=== PATIENT | female | born 1970 | race Caucasian/White ===

== ENCOUNTER 2018-07-27 16:13 | Observation (INO) | payer BC, OTHER ==
[2018-07-27] MEDS ORDERED: hydrALAZINE HCL 20 MG/ML 1 ML VIAL IVP STA ×2 (17:02→18:40)
--- NOTE | 2018-07-27 17:05 | ED ---
General Adult HPI - General Chief complaint: Recheck/Abnormal Lab/Rx Stated complaint: High BP/lightheaded Time Seen by Provider: 07/27/18 16:15 Source: patient, RN notes reviewed Mode of arrival: ambulatory Limitations: no limitations - History of Present Illness Initial comments: This is a 47-year-old female presents emergency department claiming that her blood pressures been elevated over the last 6 months but today at the eye doctor 's office her blood pressure was over 200. Patient states he felt a little lightheaded this afternoon so she decided to come in to the emergency department. Patient denies any chest pain patient denies any headache patient denies any blurred vision. Patient denies any numbness or weakness. Patient denies any palpitations. Patient denies abdominal pain patient denies any nausea vomiting diarrhea. Patient denies any recent fever chills or cough. Patient states she hasn't had her blood pressure evaluated by a physician because she has not had insurance for quite a few years. Patient states she takes her blood pressure at home and has noticed his been elevating over this last 6 months. - Related Data Home Medications Medication Instructions Recorded Confirmed Aspirin EC [Ecotrin] 325 mg PO ONCE PRN 07/27/18 07/27/18 Norgestimate-Ethinyl Estradiol 1 tab PO HS 07/27/18 07/27/18 [Tri-Sprintec Tablet] Allergies Allergy/AdvReac Type Severity Reaction Status Date / Time No Known Allergies Allergy Verified 07/27/18 16:39 Review of Systems ROS Statement: Those systems with pertinent positive or pertinent negative responses have been documented in the HPI. ROS Other: All systems not noted in ROS Statement are negative. Past Medical History Additional Past Medical History / Comment(s): neurofibromatosis History of Any Multi-Drug Resistant Organisms: None Reported Past Surgical History: Section Additional Past Surgical History / Comment(s): brain surgery Past Psychological History: No Psychological Hx Reported Smoking Status: Never smoker Past Alcohol Use History: None Reported Past Drug Use History: None Reported General Exam - General Exam Comments Initial Comments: GENERAL: Patient is well-developed and well-nourished. Patient is nontoxic and well- hydrated and is in no acute distress. ENT: Neck is soft and supple. No significant lymphadenopathy is noted. Oropharynx is clear. Moist mucous membranes. Neck has full range of motion without eliciting any pain. There is no thyroid enlargement and no masses were felt. EYES: The sclera were anicteric and conjunctiva were pink and moist. Extraocular movements were intact and pupils were equal round and reactive to light. Eyelids were unremarkable. PULMONARY: Unlabored respirations. Good breath sounds bilaterally. No audible rales rhonchi or wheezing was noted. CARDIOVASCULAR: There is a regular rate and rhythm without any murmurs gallops or rubs. ABDOMEN: Soft and nontender with normal bowel sounds. No palpable organomegaly was noted. There is no palpable pulsatile mass. SKIN: Skin is clear with no lesions or rashes and otherwise unremarkable. NEUROLOGIC: Patient is alert and oriented x3. Cranial nerves II through XII are grossly intact. Motor and sensory are also intact. Normal speech, volume and content. Symmetrical smile. MUSCULOSKELETAL: Normal extremities with adequate strength and full range of motion. No lower extremity swelling or edema. No calf tenderness. LYMPHATICS: No significant lymphadenopathy is noted PSYCHIATRIC: Normal psychiatric evaluation. Limitations: no limitations Course Vital Signs 07/27/18 07/27/18 07/27/18 16:16 17:30 18:39 Temperature 98.1 F Pulse Rate 88 98 97 Respiratory 20 16 16 Rate Blood Pressure 208/98 161/87 168/85 O2 Sat by Pulse 100 100 100 Oximetry 07/27/18 19:12 Temperature Pulse Rate 90 Respiratory 16 Rate Blood Pressure 153/85 O2 Sat by Pulse 98 Oximetry Medical Decision Making - Medical Decision Making EKG shows sinus rhythm with occasional PVC at 75 bpm MN interval 1:30 QRS is 88 QT interval 374 QTC is 417. Patient's EKG shows no ST segment elevation or depression or T wave abnormalities are noted Chest x-ray shows no acute abnormalities. Patient continues to have intermittent chest heaviness and it was at this point time due to the patient wanted to stay in hospital and she was in agreement. I consult the cardiology I spoke with because he agreed to admit the patient admitted the patient I wrote admitting orders. I continued the Nitropaste and aspirin on the floor. - Lab Data Result diagrams: 07/27/18 17:10 07/27/18 17:10 Lab Results 07/27/18 07/27/18 07/27/18 Range/Units 17:10 17:10 17:10 WBC 9.5 (3.8-10.6) k/uL RBC 5.58 H (3.80-5.40) m/uL Hgb 15.5 (11.4-16.0) gm/dL Hct 49.3 H (34.0-46.0) % MCV 88.2 (80.0-100.0) fL MCH 27.8 (25.0-35.0) pg MCHC 31.6 (31.0-37.0) g/dL RDW 13.6 (11.5-15.5) % Plt Count 236 (150-450) k/uL Neutrophils % 74 % Lymphocytes % 17 % Monocytes % 6 % Eosinophils % 1 % Basophils % 1 % Neutrophils # 7.0 (1.3-7.7) k/uL Lymphocytes # 1.6 (1.0-4.8) k/uL Monocytes # 0.6 (0-1.0) k/uL Eosinophils # 0.1 (0-0.7) k/uL Basophils # 0.1 (0-0.2) k/uL PT (9.0-12.0) sec INR (<1.2) APTT (22.0-30.0) sec Sodium 141 (137-145) mmol/L Potassium 3.8 (3.5-5.1) mmol/L Chloride 109 H (98-107) mmol/L Carbon Dioxide 23 (22-30) mmol/L Anion Gap 9 mmol/L BUN 13 (7-17) mg/dL Creatinine 0.71 (0.52-1.04) mg/dL Est GFR (CKD-EPI)AfAm >90 (>60 ml/min/1.73 sqM) Est GFR (CKD-EPI)NonAf >90 (>60 ml/min/1.73 sqM) Glucose 96 (74-99) mg/dL Calcium 9.4 (8.4-10.2) mg/dL Magnesium 2.0 (1.6-2.3) mg/dL Total Bilirubin 0.3 (0.2-1.3) mg/dL AST 16 (14-36) U/L ALT 13 (9-52) U/L Alkaline Phosphatase 51 (38-126) U/L Total Creatine Kinase 41 (30-135) U/L CK-MB (CK-2) 0.7 (0.0-2.4) ng/mL CK-MB (CK-2) Rel Index 1.7 Troponin I <0.012 (0.000-0.034) ng/mL Total Protein 7.0 (6.3-8.2) g/dL Albumin 3.9 (3.5-5.0) g/dL 07/27/18 Range/Units 17:10 WBC (3.8-10.6) k/uL RBC (3.80-5.40) m/uL Hgb (11.4-16.0) gm/dL Hct (34.0-46.0) % MCV (80.0-100.0) fL MCH (25.0-35.0) pg MCHC (31.0-37.0) g/dL RDW (11.5-15.5) % Plt Count (150-450) k/uL Neutrophils % % Lymphocytes % % Monocytes % % Eosinophils % % Basophils % % Neutrophils # (1.3-7.7) k/uL Lymphocytes # (1.0-4.8) k/uL Monocytes # (0-1.0) k/uL Eosinophils # (0-0.7) k/uL Basophils # (0-0.2) k/uL PT 9.7 (9.0-12.0) sec INR 1.0 (<1.2) APTT 22.3 (22.0-30.0) sec Sodium (137-145) mmol/L Potassium (3.5-5.1) mmol/L Chloride (98-107) mmol/L Carbon Dioxide (22-30) mmol/L Anion Gap mmol/L BUN (7-17) mg/dL Creatinine (0.52-1.04) mg/dL Est GFR (CKD-EPI)AfAm (>60 ml/min/1.73 sqM) Est GFR (CKD-EPI)NonAf (>60 ml/min/1.73 sqM) Glucose (74-99) mg/dL Calcium (8.4-10.2) mg/dL Magnesium (1.6-2.3) mg/dL Total Bilirubin (0.2-1.3) mg/dL AST (14-36) U/L ALT (9-52) U/L Alkaline Phosphatase (38-126) U/L Total Creatine Kinase (30-135) U/L CK-MB (CK-2) (0.0-2.4) ng/mL CK-MB (CK-2) Rel Index Troponin I (0.000-0.034) ng/mL Total Protein (6.3-8.2) g/dL Albumin (3.5-5.0) g/dL Disposition Clinical Impression: Chest pain Disposition: ADMITTED IP TO THIS HOSP Referrals: None,Stated [Primary Care Provider] - 1-2 days Time of Disposition: 19:33
[2018-07-27 17:36] LABS: Basophils # (A) 0.1 k/uL (0-0.2); Basophils % (A) 1 %; Eosinophils # (A) 0.1 k/uL (0-0.7); Eosinophils % (A) 1 %; HCT 49.3 % (34.0-46.0); HGB 15.5 gm/dL (11.4-16.0); Lymphocytes # (A) 1.6 k/uL (1.0-4.8); Lymphocytes % (A) 17 %; MCH 27.8 pg (25.0-35.0); MCHC 31.6 g/dL (31.0-37.0); MCV 88.2 fL (80.0-100.0); Mean Platelet Volume 7.1; Monocytes # (A) 0.6 k/uL (0-1.0); Monocytes % (A) 6 %; Neutrophils % (A) 74 %; Platelet Count 236 k/uL (150-450); RBC 5.58 m/uL (3.80-5.40); RDW 13.6 % (11.5-15.5); WBC 9.5 k/uL (3.8-10.6)
[2018-07-27 17:45] LABS: Partial Thromboplastin Time 22.3 sec (22.0-30.0); Prothrombin Time 9.7 sec (9.0-12.0)
[2018-07-27 17:55] LABS: ALT 13 U/L (9-52); AST 16 U/L (14-36); Albumin 3.9 g/dL (3.5-5.0); Alkaline Phosphatase 51 U/L (38-126); Anion Gap 9 mmol/L; Blood Urea Nitrogen 13 mg/dL (7-17); Calcium 9.4 mg/dL (8.4-10.2); Carbon Dioxide 23 mmol/L (22-30); Chloride 109 mmol/L (98-107); Glucose 96 mg/dL (74-99); Potassium 3.8 mmol/L (3.5-5.1); Sodium 141 mmol/L (137-145); Total Bilirubin 0.3 mg/dL (0.2-1.3)
[2018-07-27 18:01] LABS: Creatine Kinase 41 U/L (30-135)
[2018-07-27 18:13] LABS: Creatine Kinase MB 0.7 ng/mL (0.0-2.4); Troponin I <0.012 ng/mL (0.000-0.034)
--- NOTE | 2018-07-27 18:27 | XR ---
EXAMINATION TYPE: XR chest 2V DATE OF EXAM: 07/27/2018 COMPARISON: NONE HISTORY: High blood pressure TECHNIQUE: Frontal and lateral views of the chest are obtained. FINDINGS: Heart and mediastinum are normal. Lungs are clear. Diaphragm is normal. Bony thorax is int act. IMPRESSION: Normal chest
[2018-07-27] MEDS ORDERED: LISINOPRIL 5 MG TAB PO STA (18:37)
[2018-07-27] MEDS ORDERED: ASPIRIN 81 MG PO STA (19:10)
[2018-07-27] MEDS ORDERED: NITROGLYCERIN OINT 1 INCH/GM PACKET TOPICAL STA (19:27)
[2018-07-27] MEDS ORDERED: NITROGLYCERIN SL TABS 0.4 MG TAB SUBLINGUAL PRN (19:33)
[2018-07-27] MEDS ORDERED: LORazepam 2 MG/ML INJ IV PRN (19:35)
[2018-07-27] MEDS ORDERED: MELATONIN 3 MG TABLET PO PRN (22:48)
[2018-07-27] MEDS ORDERED: ACETAMINOPHEN TAB 500 MG TAB PO PRN (22:48)
[2018-07-27] MEDS ORDERED: cloNIDine HCL 0.1 MG TAB PO PRN (22:48)
[2018-07-27] MEDS ORDERED: HYDROcodone/APAP 5-325MG 1 EACH TAB PO PRN (22:48)
[2018-07-27] MEDS ORDERED: ALPRAZolam 0.25 MG TAB PO PRN (22:48)
[2018-07-27] MEDS ORDERED: METOPROLOL TARTRATE 12.5 MG TAB PO SCH (23:00)
--- NOTE | 2018-07-27 23:20 | HP ---
HISTORY AND PHYSICAL DATE OF SERVICE: 07/27/2018 CHIEF COMPLAINTS: Lightheaded as well as high blood pressure and chest heaviness. 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 Patient was found to have elevated blood pressure. The patient also had some chest heaviness. The patient came to [facility] and was admitted for further evaluation and treatment. The evaluation initially showed normal troponins and the EKG showed occasional PVCs. The patient was admitted for further evaluation and treatment. Patient is not followed by any primary physician in the outpatient setting. There is no history of any fever, rigor or chills. No history of headache, loss of consciousness, seizures. PAST MEDICAL HISTORY: 1. History of neurofibromatosis. 2. History of elevated prolactin level. 3. History of brain surgery for cyst removal from pituitary gland. MEDICATIONS PRIOR TO ADMISSION: 1. Tri Sprintec 1 tablet at bedtime. 2. Ecotrin 325 mg once. ALLERGIES: NONE. FAMILY HISTORY: History of breast cancer in the family. History of coronary artery disease in her father, who at the age of 39. SOCIAL HISTORY: Patient works as a nurse's aide. No history of smoking. Occasional alcohol intake. REVIEW OF SYSTEMS: ENT: As mentioned earlier. CARDIOVASCULAR SYSTEM: As mentioned earlier. RESPIRATORY SYSTEM: As mentioned earlier. GI: No nausea, vomiting. : No dysuria or retention. NERVOUS SYSTEM: As mentioned earlier. ALLERGY/IMMUNOLOGY: No asthma, hayfever. MUSCULOSKELETAL: As mentioned earlier. HEMATOLOGY/ONCOLOGY: No history of anemia. ENDOCRINE: No history of diabetes, hypothyroidism. CONSTITUTIONAL: As mentioned earlier. DERMATOLOGY: Negative. RHEUMATOLOGY: Negative. PSYCHIATRY: As mentioned earlier. PHYSICAL EXAMINATION: Patient is alert and oriented x3. Pulse 107, blood pressure 149/85, respiration 16, temperature 98.8, pulse ox 97% on room air. HEENT: Conjunctivae normal. Oral mucosa moist. NECK: No jugular venous distention. No carotid bruit. No lymph node enlargement. CARDIOVASCULAR SYSTEM: S1, S2 muffled. RESPIRATORY SYSTEM: Breath sounds diminished at the bases. No rhonchi. No crackles. ABDOMEN: Soft, non-tender. No mass palpable. LEGS: No edema. No swelling. NERVOUS SYSTEM: Higher functions as mentioned earlier. Cranial nerves are normal. Moves all 4 limbs. No focal motor or sensory deficit. No signs of cerebellar dysfunction. SKIN: No ulcer, rash, bleeding. JOINTS: No active deforming arthropathy. LAB INVESTIGATIONS: WBC 9.5, hemoglobin 15.5. CMP within normal limits. ASSESSMENT: 1. Chest heaviness for evaluation; rule out coronary artery disease. 2. Hypertension. 3. Rule out transient ischemic attack. 4. History of pituitary cyst and brain surgery. 5. History of neurofibromatosis. 6. History elevated prolactin level. RECOMMENDATIONS AND DISCUSSION: In this 47-year-old woman who presented with multiple complex medical issues, we will monitor the patient closely, continue the current medications, continue with symptomatic treatment. I would recommend a neurology and cardiology consultation to rule out myocardial infarction. I would also recommend CT of the brain and prolactin level to complete the workup. I would also recommend that the patient follow up closely with a primary physician. Prognosis is extremely guarded because of multiple complex medical issues. Further recommendations to follow. MMODL / IJN: [id number] /
--- NOTE | 2018-07-27 23:27 | CT ---
EXAMINATION TYPE: CT brain wo con DATE OF EXAM: 07/27/2018 COMPARISON: None HISTORY: Pituitary tumor CT DLP: 1135 mGycm. Automated Exposure Control for Dose Reduction was Utilized. TECHNIQUE: CT scan of the head is performed without contrast. FINDINGS: Ventricles of normal size. There is no mass effect nor midline shift. There is no sign of i ntracranial hemorrhage. The calvarium is intact. There is no sellar mass. Sella turcica appears josh l. There is hypodensity in the anterior right middle cranial fossa consistent with old encephalomalac ia and previous surgery. IMPRESSION: Negative CT scan of the brain. No acute abnormality. There is some thinning of right temporal bone co nsistent with old craniotomy.
[2018-07-28 00:01] LABS: Appearance,Urine Cloudy (Clear); Bilirubin,Urine Negative (Negative); Blood,Urine Negative (Negative); Budding Yeast,Urine Rare /hpf; Color,Urine Yellow; Glucose,Urine (UA) Negative (Negative); Ketones,Urine 1+ (Negative); Leukocyte Esterase,Urine Large (Negative); Mucus,Urine Few /hpf; Nitrite,Urine Negative (Negative); PH, Urine 5.5 (5.0-8.0); Protein,Urine Negative (Negative); RBC,Urine 4 /hpf (0-5); Specific Gravity,Urine 1.017 (1.001-1.035); Squamous Epithelial Cell,Urine 10 /hpf (0-4); Urobilinogen,Urine <2.0 mg/dL (<2.0); WBC,Urine 11 /hpf (0-5)
[2018-07-28 00:04] LABS: Amphetamine Screen,Urine Not Detected (NotDetected); Barbiturate Screen,Urine Not Detected (NotDetected); Benzodiazepines Screen,Urine Not Detected (NotDetected); Cocaine Screen,Urine Not Detected (NotDetected); Methadone Screen, Urine Not Detected (NotDetected); Opiate Screen,Urine Not Detected (NotDetected); Oxycodone Screen, Urine Not Detected (NotDetected); Phencyclidine Screen,Urine Not Detected (NotDetected); Tricyclic Antidepressant,Urine Not Detected (NotDetected); Urn Cannabinoid Scrn Not Detected (NotDetected)
[2018-07-28 00:13] LABS: Creatine Kinase MB 0.6 ng/mL (0.0-2.4); Troponin I 0.025 ng/mL (0.000-0.034)
[2018-07-28] MEDS: NITROGLYCERIN OINT 1 INCH/GM PACKET TOPICAL SCH ×2 (02:02→04:40)
[2018-07-28] MEDS ORDERED: MELATONIN 3 MG TABLET PO PRN (02:15)
[2018-07-28] MEDS ORDERED: MELATONIN 5 MG TABLET PO PRN (02:42)
[2018-07-28 05:46] LABS: Basophils # (A) 0.1 k/uL (0-0.2); Basophils % (A) 0 %; Eosinophils # (A) 0.1 k/uL (0-0.7); Eosinophils % (A) 1 %; HCT 43.2 % (34.0-46.0); HGB 13.8 gm/dL (11.4-16.0); Lymphocytes # (A) 2.3 k/uL (1.0-4.8); Lymphocytes % (A) 19 %; MCH 27.4 pg (25.0-35.0); MCHC 31.9 g/dL (31.0-37.0); Mean Platelet Volume 6.5; Monocytes # (A) 0.6 k/uL (0-1.0); Monocytes % (A) 5 %; Neutrophils # (A) 8.6 k/uL (1.3-7.7); Neutrophils % (A) 73 %; Platelet Count 244 k/uL (150-450); RBC 5.02 m/uL (3.80-5.40); RDW 13.8 % (11.5-15.5); WBC 11.9 k/uL (3.8-10.6)
[2018-07-28 05:53] LABS: Anion Gap 7 mmol/L; Blood Urea Nitrogen 14 mg/dL (7-17); Calcium 8.9 mg/dL (8.4-10.2); Carbon Dioxide 22 mmol/L (22-30); Chloride 110 mmol/L (98-107); Cholesterol 217 mg/dL (<200); Glucose 89 mg/dL (74-99); HDL Cholesterol 58 mg/dL (40-60); LDL Cholesterol,Calculated 125 mg/dL (0-99); Potassium 4.1 mmol/L (3.5-5.1); Sodium 139 mmol/L (137-145); Triglycerides 168 mg/dL (<150)
[2018-07-28 06:22] LABS: Creatine Kinase MB 0.4 ng/mL (0.0-2.4); Troponin I 0.016 ng/mL (0.000-0.034)
[2018-07-28] MEDS ORDERED: PANTOPRAZOLE 40 MG TABLET PO SCH (07:30)
[2018-07-28] MEDS ORDERED: ASPIRIN 325 MG TAB PO SCH (09:00)
[2018-07-28 09:27] LABS: Glucose,Whole Blood 90 mg/dL (75-99)
--- NOTE | 2018-07-28 10:49 | P.CRDCN ---
History of Present Illness History of present illness: Mrs. Olmedo is a pleasant 47-year-old female past medical history significant for neurofibromatosis. She denies history of coronary artery disease , hypertension, dyslipidemia or diabetes mellitus. We have been asked to see her in consultation for elevated blood pressure and chest pain. She states her blood pressure has been going up over the last few months at home. She doesn't have insurance so she hasn't seen a PCP in many years. She went to the eye Dr for routine eye exam and bp was over 200 systolic. She felt like she was dizzy and off balance slightly. She denies chest pain, shortness of breath, nausea, vomiting, palpitations or diaphoresis. She did feel an odd discomfort throughout her upper body at times as well. Not described as a pain or heaviness but just feeling "odd". Denies pain in arm, back, neck or jaw. Upon arrival to ED blood pressure was 208/98. She was given IV hydralazine, PO lopressor and nitro paste. Blood pressure has come down. Repeat this morning 130 /81 heart rate 79. EKG reveals sinus mechanism with no acute ST or T-wave abnormalities. Chest xray negative for an acute cardiopulmonary process. CT brain negative for an acute process. Laboratory data reviewed, hgb 13.8, WBC 11.9, plt 244, sodium 139, potassium 4.1 , creatinine 0.64, cardiac enzymes negative x3, LDL 125, HDL 58. Review of Systems At the time of my exam: CONSTITUTIONAL: Denies fever. Denies chills. EYES: Denies blurred vision. Denies vision changes. Denies eye pain. EARS, NOSE, MOUTH & THROAT: Denies headache. Denies sore throat. Denies ear pain. CARDIOVASCULAR: Denies chest pain. Denies shortness of breath. Denies orthopnea. Denies PND. Denies palpitations. RESPIRATORY: Denies cough. GASTROINTESTINAL: Denies abdominal pain. Denies diarrhea. Denies constipation. Denies nausea. Denies vomiting. MUSCULOSKELETAL: Denies myalgias. INTEGUMENTARY: Denies pruitis. Denies rash. NEUROLOGIC: Denies numbness. Denies tingling. Denies weakness. PSYCHIATRIC: Denies anxiety. Denies depression. ENDOCRINE: Denies fatigue. Denies weight change. Denies polydipsia. Denies polyurina. GENITOURINARY: Denies burning, hematuria or urgency with micturation. HEMATOLOGIC: Denies history of anemia. Denies bleeding. Past Medical History Additional Past Medical History / Comment(s): neurofibromatosis, past lt arm fx , hx elevated prolactin level-saw an program rep for it. 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 3 sx rt leg to remove neurofibromas, benign tunor removed from chest Past Anesthesia/Blood Transfusion Reactions: Motion Sickness Additional Past Anesthesia/Blood Transfusion Reaction / Comment(s): clausterphobia Smoking Status: Never smoker - Past Family History Mother Family Medical History: Cancer Additional Family Medical History / Comment(s): breast cancer Son(s) Additional Family Medical History / Comment(s): brain sx for astrocytoma. and is autistic Father Family Medical History: Cancer, Myocardial Infarction ([place]) Additional Family Medical History / Comment(s): neurofibromatosis Medications and Allergies Home Medications Medication Instructions Recorded Confirmed Type Aspirin EC [Ecotrin] 325 mg PO ONCE PRN 07/27/18 07/27/18 History Norgestimate-Ethinyl Estradiol 1 tab PO HS 07/27/18 07/27/18 History [Tri-Sprintec Tablet] Allergies Allergy/AdvReac Type Severity Reaction Status Date / Time No Known Allergies Allergy Verified 07/27/18 16:39 Physical Exam Vitals: Vital Signs Temp Pulse Pulse Resp BP BP Pulse Ox 07/28/18 07:56 81 16 07/28/18 07:35 98.0 F 79 18 130/81 96 07/28/18 04:00 16 07/28/18 03:38 98.4 F 81 16 129/78 96 07/27/18 23:40 98.6 F 87 16 144/86 98 07/27/18 23:38 16 07/27/18 20:35 98.8 F 107 H 16 149/85 97 07/27/18 20:00 16 07/27/18 19:12 90 16 153/85 98 07/27/18 18:39 97 16 168/85 100 07/27/18 17:30 98 16 161/87 100 07/27/18 16:16 98.1 F 88 20 208/98 100 Intake and Output 07/27/18 07/28/18 07/28/18 22:59 06:59 14:59 Other: Voiding Method Toilet Toilet Toilet # Voids 1 3 Weight 72.5 kg Blood pressure 130/81 heart rate 79 afebrile maintaining oxygen saturation on room air GENERAL: This is a 47-year-old female in no apparent distress at the time of my examination. HEENT: Head is atraumatic, normocephalic. Pupils are equal, round. Sclerae anicteric. Conjunctivae are clear. Mucous membranes of the mouth are moist. Neck is supple. There is no jugular venous distention. No carotid bruit is heard. LUNGS: Clear to auscultation no wheezes, rales or rhonchi. No chest wall tenderness is noted on palpation or with deep breathing. HEART: Regular rate and rhythm without murmurs, rubs or gallops. S1 and S2 heard. ABDOMEN: Soft, nontender. Bowel sounds are heard. No organomegaly noted. EXTREMITIES: No evidence of peripheral edema and no calf tenderness noted. VASCULAR: Radial and dorsalis pedis pulses palpated, no evidence of clubbing. NEUROLOGIC: Patient is awake, alert and oriented x3. Results 07/28/18 05:11 07/28/18 05:11 Cardiac Enzymes 07/27/18 07/27/18 07/27/18 Range/Units 17:10 17:10 23:26 AST 16 (14-36) U/L CK-MB (CK-2) 0.7 0.6 (0.0-2.4) ng/mL Troponin I <0.012 0.025 (0.000-0.034) ng/mL 07/28/18 Range/Units 05:11 AST (14-36) U/L CK-MB (CK-2) 0.4 (0.0-2.4) ng/mL Troponin I 0.016 (0.000-0.034) ng/mL Coagulation 07/27/18 Range/Units 17:10 PT 9.7 (9.0-12.0) sec APTT 22.3 (22.0-30.0) sec Lipids 07/28/18 Range/Units 05:11 Triglycerides 168 H (<150) mg/dL Cholesterol 217 H (<200) mg/dL HDL Cholesterol 58 (40-60) mg/dL CBC 07/27/18 07/28/18 Range/Units 17:10 05:11 WBC 9.5 11.9 H (3.8-10.6) k/uL RBC 5.58 H 5.02 (3.80-5.40) m/uL Hgb 15.5 13.8 (11.4-16.0) gm/dL Hct 49.3 H 43.2 (34.0-46.0) % Plt Count 236 244 (150-450) k/uL Comprehensive Metabolic Panel 07/27/18 07/28/18 Range/Units 17:10 05:11 Sodium 141 139 (137-145) mmol/L Potassium 3.8 4.1 (3.5-5.1) mmol/L Chloride 109 H 110 H (98-107) mmol/L Carbon Dioxide 23 22 (22-30) mmol/L BUN 13 14 (7-17) mg/dL Creatinine 0.71 0.64 (0.52-1.04) mg/dL Glucose 96 89 (74-99) mg/dL Calcium 9.4 8.9 (8.4-10.2) mg/dL AST 16 (14-36) U/L ALT 13 (9-52) U/L Alkaline Phosphatase 51 (38-126) U/L Total Protein 7.0 (6.3-8.2) g/dL Albumin 3.9 (3.5-5.0) g/dL Current Medications Generic Name Dose Route Start Last Admin Trade Name Freq PRN Reason Stop Dose Admin Acetaminophen 500 mg 07/27/18 22:48 07/28/18 02:02 Tylenol Tab PO 500 mg Q6HR PRN Administration Fever and/ or Pain Hydrocodone Bitart/Acetaminophen 1 each 07/27/18 22:48 Lizemores 5-325 PO Q6HR PRN Pain Alprazolam 0.25 mg 07/27/18 22:48 Xanax PO TID PRN Anxiety Aspirin 325 mg 07/28/18 09:00 Aspirin PO DAILY SAIRA Lorazepam 1 mg 07/27/18 19:35 Ativan IV Q6HR PRN Anxiety Melatonin 5 mg 07/28/18 02:42 Melatonin PO HS PRN Insomnia Nitroglycerin 0.4 mg 07/27/18 19:33 Nitrostat SUBLINGUAL Q5M PRN Chest Pain Pantoprazole Sodium 40 mg 07/28/18 07:30 Protonix PO AC-BRKFST SAIRA Intake and Output 07/27/18 07/28/18 07/28/18 22:59 06:59 14:59 Other: Voiding Method Toilet Toilet Toilet # Voids 1 3 Weight 72.5 kg 07/28/18 05:11 07/28/18 05:11 Assessment and Plan Assessment: ASSESSMENT Hypertensive emergency, new onset hypertension Chest pain, atypical. An acute coronary event has been ruled out with no EKG evidence of ischemia and negative cardiac enzymes. Neurofibromatosis PLAN Obtain 2D echocardiogram and doppler study to assess cardiac structure and function. Start on lisinopril 5 mg daily. Advised her to keep a blood pressure journal and bring with her to follow up appointment. Will obtain stress test as an outpatient once her blood pressure is controlled. Follow up with Dr. Lopez in 2-3 weeks. Thank you kindly for this consultation. Nurse Practitioner note has been reviewed, I agree with a documented findings and plan of care. Patient was seen and examined.
--- NOTE | 2018-07-28 11:17 | ECHOF ---
Referral Reason:Stroke MEASUREMENTS -------- HEIGHT: 152.4 cm WEIGHT: 72.1 kg BP: 129/8 RVIDd: 2.8 cm (< 3.3) IVSd: 1.1 cm (0.6 - 1.1) LVIDd: 4.0 cm (3.9 - 5.3) LVPWd: 1.1 cm (0.6 - 1.1) IVSs: 1.6 cm LVIDs: 2.7 cm LVPWs: 1.6 cm LA Diam: 3.2 cm (2.7 - 3.8) LAESV Index (A-L): 17.18 ml/m Ao Diam: 3.1 cm (2.0 - 3.7) AV Cusp: 2.1 cm (1.5 - 2.6) MV EXCURSION: 15.184 mm (> 18.000) MV EF SLOPE: 78 mm/s (70 - 150) EPSS: 0.5 cm MV E Chilo: 0.92 m/s MV DecT: 259 ms MV A Chilo: 1.21 m/s MV E/A Ratio: 0.76 RAP: 5.00 mmHg RVSP: 24.79 mmHg FINDINGS -------- Sinus rhythm. This was a technically good study. The left ventricular size is normal. There is borderline concentric left ventricular hypertrophy. Overall left ventricular systolic function is normal with, an EF between 55 - 60 %. The right ventricle is normal in size. Normal LA size by volume 22+/-6 ml/m2. The right atrium is normal in size. The aortic valve is trileaflet and appears structurally normal. There is trace to mild mitral regurgitation. Mild tricuspid regurgitation present. Right ventricular systolic pressure is normal at < 35 mmHg. There is no pulmonic regurgitation present. The aortic root size is normal. Normal inferior vena cava with normal inspiratory collapse consistent with estimated right atrial pre ssure of 5 mmHg. There is no pericardial effusion. CONCLUSIONS -------- 1. Sinus rhythm. 2. This was a technically good study. 3. The left ventricular size is normal. 4. There is borderline concentric left ventricular hypertrophy. 5. Overall left ventricular systolic function is normal with, an EF between 55 - 60 %. 6. The right ventricle is normal in size. 7. Normal LA size by volume 22+/-6 ml/m2. 8. The right atrium is normal in size. 9. The aortic valve is trileaflet and appears structurally normal. 10. There is trace to mild mitral regurgitation. 11. Mild tricuspid regurgitation present. 12. Right ventricular systolic pressure is normal at < 35 mmHg. 13. There is no pulmonic regurgitation present. 14. The aortic root size is normal. 15. Normal inferior vena cava with normal inspiratory collapse consistent with estimated right atrial pressure of 5 mmHg. 16. There is no pericardial effusion. PLANT [employer]AT[employer]Y TEACHER: Jacquie Lozano RDCS
[2018-07-28 11:31] VITALS: BP 144/79; PULSE 79; RESP 18; TEMP 97.9
--- NOTE | 2018-07-28 23:06 | DS ---
DISCHARGE SUMMARY FINAL DIAGNOSES: 1. Chest heaviness, myocardial infarction ruled out. 2. Hypertension. 3. History of pituitary cyst and brain surgery. 4. Elevated prolactin. 5. History neurofibromatosis. DISCHARGE CONDITION: The patient will be discharged in stable condition with guarded prognosis. Cardiology cleared the patient for discharge. HISTORY OF PRESENT ILLNESS: This 47-year-old woman with a past medical history of multiple medical problems , had chest heaviness and multiple symptomatology. Patient was also hypertensive. Treated symptomatically. Cardiology recommended outpatient followup. The patient also had a CT of the brain that showed no acute abnormality.prolactin level was slightly high and the patient has been recommended to followup with the patient's rubber process hand and primary care physician closely in the outpatient setting. On exam, vital signs are stable. Cardiovascular, S1 and S2 normal. Abdomen soft. Nervous system, no focal deficits. DISCHARGE INSTRUCTIONS: 1. Diet is cardiac. 2. Activity as limited. FOLLOWUP: 1. Follow up with Dr. Cervantes in 1 week. 2. Follow up with Cardiology as advised. MEDICATIONS: 1. Estradiol 1 tablet p.o. at bedtime. 2. Zestril 5 mg p.o. daily. Once again, the patient will be discharged in stable condition with guarded prognosis. MMODL / IJN: [id number] / PAVEL
[2018-07-29] MEDS ORDERED: LISINOPRIL 5 MG TAB PO SCH (09:00)
== END 2018-07-28 13:56 | disposition home or self-care (01) ==
LOC: EC 16:13 → 3OBS 19:34
PROVIDERS: ADMIT Internal Medicine; ATTEND Internal Medicine
DX: R07.89 Other chest pain (principal); I16.1 Hypertensive emergency; I10 Essential (primary) hypertension; I49.3 Ventricular premature depolarization; Q85.00 Neurofibromatosis, unspecified; E22.1 Hyperprolactinemia; F40.240 Claustrophobia; Z79.3 Long term (current) use of hormonal contraceptives; Z80.3 Family history of malignant neoplasm of breast; Z86.011 Personal history of benign neoplasm of the brain; Z86.39 Personal history of other endocrine, nutritional and metabolic disease; Z82.49 Family history of ischemic heart disease and other diseases of the circulatory system; Z80.8 Family history of malignant neoplasm of other organs or systems; Z81.8 Family history of other mental and behavioral disorders
CPT/HCPCS: 96376; 96374; 99285; 36415; 93005; 93306; 80061; 80053; 80048; 82550 ×2; 82553 ×2; 83735; 84484 ×2; 85025 ×2; 85610; 85730; 81001; 84146; 80306; 71046; 70450; G0378 ×2; J0360

== ENCOUNTER → 2018-08-15 | Outpatient (CLI) | payer BC ==
--- NOTE | 2018-08-15 09:56 | US ---
EXAMINATION TYPE: US renal artery duplex complet DATE OF EXAM: 08/15/2018 COMPARISON: NONE CLINICAL HISTORY: I10 hypertension. Patient stated had elevated BP 3 weeks ago and recently placed on antihypertensive medication; HX of neurofibromatosis MEASUREMENTS: RENAL SIZE: Rt Kidney: 11.7 x 5.2 x 4.6cm Lt Kidney: 11.8 x 4.8 x 4.9cm RESISTANCE INDEX Right: 0.64 Left: 0.65 RA/AO RATIO (< 3.5 ) Right: 2.0 Left: 1.4 RA VELOCITY ( < 180 cm/s) Right: 121.6cm/s distally Left: 85.1cm/s mid Aorta: size is wnl. RA/ AO Ratio, Resistive Indices, and RA velocities are wnl bilaterally. Although Right Renal Artery PS velocities are wnl, they are noted increased compared to Left Renal Artery PSV. Incidentally noted multiloculated cystic right hepatic lobe lesion measuring 2.9 x 2.3 x 2 3.0 cm. Kidneys: no hydronephrosis is noted bilateral kidneys. Junctional defect or focal area of cortical sc arring that is wedge-shaped is noted mid lower cortex left kidney. IMPRESSION: No sonographic evidence of renal arterial stenosis, however there are asymmetric velocities appreciat ed and therefore nonhemodynamically significant renal stenosis (less than 50% stenosis) is suggested.
== END | disposition home or self-care (01) ==
LOC: RADUSMAIN 08:07
PROVIDERS: ATTEND Family Medicine
DX: I10 Essential (primary) hypertension (principal); Q85.01 Neurofibromatosis, type 1
CPT/HCPCS: 93975

== ENCOUNTER → 2018-08-29 | Outpatient (CLI) | payer BC ==
--- NOTE | 2018-08-31 11:28 | MM ---
Reason for exam: screening (asymptomatic). Last mammogram was performed 4 years ago. History: Family history of breast cancer in mother at age 53. Taking hormonal contraceptives for 9 years beginning at age 28. Physical Findings: A clinical breast exam by your physician is recommended on an annual basis and results should be correlated with mammographic findings. MG 3D Screening Mammo W/Cad Bilateral CC and MLO view(s) were taken. Prior study comparison: August 22, 2014, right breast MG work up mamm w CAD RT. August 15, 2014, bilateral MG foundation screening mammo. The breast tissue is heterogeneously dense. This may lower the sensitivity of mammography. There is no discrete abnormality. No significant changes when compared with prior studies. ASSESSMENT: Negative, BI-RAD 1 RECOMMENDATION: Routine screening mammogram of both breasts in 1 year.
== END | disposition home or self-care (01) ==
LOC: RADMAMWWP 09:59
PROVIDERS: ATTEND Family Medicine
DX: Z12.31 Encounter for screening mammogram for malignant neoplasm of breast (principal)
CPT/HCPCS: 77063; 77067

== ENCOUNTER → 2018-09-05 | Outpatient (CLI) | payer BC ==
--- NOTE | 2018-09-05 12:33 | CT ---
EXAMINATION TYPE: CT abdomen pelvis w con DATE OF EXAM: 09/05/2018 HISTORY: Liver disease, Neurofibromatosis, Renal scarring CT DLP: 976mGycm Automated Exposure Control for Dose Reduction was Utilized. CONTRAST: CT scan of the abdomen and pelvis is performed with oral and with IV Contrast, patient injected with 100 ml mL of Isovue 300. COMPARISON: None. FINDINGS: LUNG BASES: No significant abnormality is appreciated. LIVER/GB: There is central lobulated 2.7 cm thin-walled cyst. There is subcentimeter hypodense lesion right hepatic lobe axial image 24 too small to further characterize but presumed benign. PANCREAS: No significant abnormality is seen. SPLEEN: No significant abnormality is seen. ADRENALS: No significant abnormality is seen. KIDNEYS: No significant abnormality is seen. BOWEL: Oral contrast reaches level of the left colon. Some diverticula are seen in the sigmoid colon. There is no CT evidence for acute diverticulitis. There is no suspicious small or large bowel dilata tion. UTERUS/ADNEXA: Heterogeneous anteverted uterus is seen. Both ovaries are identified and not suspiciou sly enlarged. Scattered pelvic phleboliths are present. LYMPH NODES: No greater than 1cm abdominal or pelvic lymph nodes are appreciated. OSSEOUS STRUCTURES: Some mild multilevel anterior spurring in the thoracolumbar spine is present. No suspicious neural enlargement is identified OTHER: No significant additional abnormality is seen. IMPRESSION: Lobulated otherwise simple appearing thin-walled 2.7 cm cyst. No suspicious abdominal or pelvic masses or adenopathy identified.
== END | disposition home or self-care (01) ==
LOC: RADCTMAIN 10:10
PROVIDERS: ATTEND Family Medicine
DX: K76.89 Other specified diseases of liver (principal); Q85.01 Neurofibromatosis, type 1
CPT/HCPCS: 74177; Q9967

== ENCOUNTER → 2018-10-18 | Outpatient (CLI) | payer BC ==
[2018-10-18 16:17] LABS: T4, Free (Free Thyroxine) 1.1 ng/dL (0.80-1.80)
[2018-10-18 18:16] LABS: ACTH 16.1 pg/mL (0.00-45.99)
[2018-10-20 12:12] LABS: Dopamine 24 Hr Urine 265 ug/day (65-400); Epinephrine 24 Hr Urine 3 ug/day (0-20); Norepinephrine 24 Hr Urine 44 ug/day (15-80); Total Catecholamines Urine 47 ug/day (15-100); Urine Creatinine,24 Hr 1.2 gm/24h (0.8-1.8)
[2018-10-20 12:13] LABS: Metanephrines 24 Hour,Urine 81 ug/day (52-341); Normetanephrine 24 Hour,Urine 257 ug/day (88-444); Total Metanephrines 24 Hour,Ur 338 ug/day (140-785)
== END ==
LOC: LABWHC1 08:19
PROVIDERS: ATTEND Internal Medicine Endocrinology, Diabetes & Metabolism
DX: D35.2 Benign neoplasm of pituitary gland (principal); Z84.89 Family history of other specified conditions
CPT/HCPCS: 36415; 82024; 82384; 82533; 83835; 84146; 84305; 84439; 84443; 84480

== ENCOUNTER → 2018-12-28 | Outpatient (CLI) | payer BC | LOC: LABWHC1 10:31 | PROVIDERS: ATTEND Obstetrics & Gynecology | DX: N95.1 Menopausal and female climacteric states (principal) | CPT/HCPCS: 36415; 82670; 83001; 83002 ==

== ENCOUNTER → 2019-01-12 | Outpatient (CLI) | payer BC ==
[2019-01-12 16:41] LABS: LDL Cholesterol,Calculated 159.8 mg/dL (0.0-131.0); VLDL Calculation 35.2 mg/dL (5.00-40.00)
== END ==
LOC: LABWHC1 08:25
PROVIDERS: ATTEND Internal Medicine Interventional Cardiology
DX: E78.2 Mixed hyperlipidemia (principal)
CPT/HCPCS: 36415; 80061; 84450; 84460

== ENCOUNTER → 2019-02-02 | Outpatient (CLI) | payer BC ==
[2019-02-02 09:25] LABS: Basophils # (A) 0.1 k/uL (0-0.2); Basophils % (A) 1 %; Eosinophils # (A) 0.2 k/uL (0-0.7); Eosinophils % (A) 2 %; HCT 42.1 % (34.0-46.0); HGB 13.9 gm/dL (11.4-16.0); Lymphocytes # (A) 1.8 k/uL (1.0-4.8); Lymphocytes % (A) 24 %; MCH 27.5 pg (25.0-35.0); MCHC 32.9 g/dL (31.0-37.0); MCV 83.5 fL (80.0-100.0); Mean Platelet Volume 8.7; Monocytes # (A) 0.5 k/uL (0-1.0); Monocytes % (A) 7 %; Neutrophils # (A) 4.9 k/uL (1.3-7.7); Neutrophils % (A) 64 %; Platelet Count 239 k/uL (150-450); RBC 5.04 m/uL (3.80-5.40); WBC 7.6 k/uL (3.8-10.6)
[2019-02-02 15:54] LABS: Anion Gap 7.5 mmol/L (4.00-12.00); Calcium 8.7 mg/dL (8.7-10.3); Carbon Dioxide 24.5 mmol/L (21.6-31.8); Potassium 4.1 mmol/L (3.5-5.5)
== END ==
LOC: LABWHC1 08:32
PROVIDERS: ATTEND Family Medicine
DX: I10 Essential (primary) hypertension (principal)
CPT/HCPCS: 36415; 80048; 85025

== ENCOUNTER → 2019-04-02 | Outpatient (CLI) | payer BC | END | disposition home or self-care (01) | LOC: LABWHC1 08:08 | PROVIDERS: ATTEND Internal Medicine Endocrinology, Diabetes & Metabolism | DX: D35.2 Benign neoplasm of pituitary gland (principal); Z84.89 Family history of other specified conditions | CPT/HCPCS: 36415; 82024; 82533 ==

== ENCOUNTER → 2019-10-04 | Outpatient (CLI) | payer BC ==
[2019-10-05 04:54] LABS: Chol/HDL Ratio 4.43; LDL Cholesterol,Calculated 144.2 mg/dL (0.0-131.0); VLDL Calculation 30.8 mg/dL (5.00-40.00)
== END | disposition home or self-care (01) ==
LOC: LABWHC1 14:45
PROVIDERS: ATTEND Nurse Practitioner Adult Health
DX: E78.5 Hyperlipidemia, unspecified (principal)
CPT/HCPCS: 36415; 80061

== ENCOUNTER → 2021-12-15 | Outpatient (CLI) | payer BC ==
--- NOTE | 2021-12-15 11:59 | XR ---
EXAMINATION TYPE: XR skull complete DATE OF EXAM: 12/15/2021 COMPARISON: CT brain 2018 HISTORY: History of prior brain surgery, pre-MRI clearance. TECHNIQUE: Both lateral along with PA and AP views of the skull. FINDINGS: No suspicious metallic intracranial foreign body to prevent MRI study is identified. IMPRESSION: As above.
== END | disposition home or self-care (01) ==
LOC: RADXRMAIN 11:09
PROVIDERS: ATTEND Orthopaedic Surgery Sports Medicine
DX: M79.661 Pain in right lower leg (principal); Q85.00 Neurofibromatosis, unspecified
CPT/HCPCS: 70260

== ENCOUNTER → 2021-12-23 | Outpatient (CLI) | payer BC ==
--- NOTE | 2021-12-23 13:24 | MM ---
Reason for exam: additional evaluation requested from abnormal screening. Last mammogram was performed less than 1 month ago. History: Family history of breast cancer in mother at age 53. Took hormonal contraceptives for 9 years beginning at age 28. Physical Findings: Nurse did not find any significant physical abnormalities on exam. MG 3D Work Up W/Cad RT Spot compression CC and LM view(s) were taken of the right breast. Prior study comparison: December 10, 2021, bilateral MG 3d screening mammo w/cad. August 29, 2018, bilateral MG 3d screening mammo w/cad. The breast tissue is heterogeneously dense. This may lower the sensitivity of mammography. Finding: There are intermediate concern, suspicious round, grouped/clustered calcifications in the upper outer quadrant of the right breast 2.5cm from the nipple. There is no discrete abnormality including area of concern outer anterior on CC. These results were verbally communicated with the patient and result sheet given to the patient on 12/23/21. ASSESSMENT: Incomplete: need additional imaging evaluation, BI-RAD 0 RECOMMENDATION: Ultrasound of the right breast.
--- NOTE | 2021-12-23 13:26 | USB ---
Reason for exam: additional evaluation requested from abnormal screening. History: Family history of breast cancer in mother at age 53. Took hormonal contraceptives for 9 years beginning at age 28. US Breast Workup Limited RT Right limited breast ultrasound including focal area of concern, retroareolar and axilla demonstrates no cystic or solid lesion seen. Right 9-12 o'clock scanned. These results were verbally communicated with the patient and result sheet given to the patient on 12/23/21. ASSESSMENT: Negative, BI-RAD 1 RECOMMENDATION: Surgical consultation and stereotactic core biopsy of the right breast. (right breast calcification) Called Dr. Sarah's office with mammographic findings and has scheduled an appointment for the patient for 02/11/22 at 8:[address] Pedro. Biopsy scheduled for 01/25/22 at 10:30. PRELIMINARY REPORT CALLED AND FAXED TO DR. PEDRO ON 12/23/21.
== END ==
LOC: RADMAMWWP 10:22
PROVIDERS: ATTEND Obstetrics & Gynecology
DX: R92.8 Other abnormal and inconclusive findings on diagnostic imaging of breast (principal)
CPT/HCPCS: 77061; 77065

== ENCOUNTER → 2022-01-25 | Day surgery (SDC) | payer BC ==
[2022-01-25 09:53] VITALS: RESP 16
[2022-01-25 11:19] VITALS: BP 123/80; PULSE 69; TEMP 87.9
--- NOTE | 2022-01-25 19:26 | MM ---
EXAMINATION TYPE: MG stereo VAD BX RT DATE OF EXAM: 01/25/2022 COMPARISON: 12/23/2021, 12/10/2021 CLINICAL HISTORY: 51-year-old female R92.8, referred for stereotactic or needle biopsy of right breast microcalcifications. TECHNIQUE: Stereotactic guided core biopsy of the right breast. FINDINGS: The procedure of stereotactic guided core biopsy was explained to the patient. Benefits, alternatives, and risks were discussed. An informed consent was then obtained. [facility] was [facility]. Shortness pathway was a lateral approach. I performed the localization followed by the remainder of the procedure. A vacuum assisted biopsy gun was used to obtain 8 core samples. The patient tolerated the procedure well without any immediate complication. The patient was kept in the radiology department for short stay after the procedure and then discharged home in stable condition. Targeted calcifications are identified in specimen mammogram. However, postbiopsy mammogram shows significant clip migration. As calcifications are present in the specimens, partial sampling likely occurred. Some residual 9:00 microcalcification indicate the intended biopsy site. If high risk or malignant results, the residual microcalcifications can be targeted for excision. Otherwise, benign results, six-month follow-up mammogram will be recommended. IMPRESSION: Significant clip migration after targeting the 9:00 right breast microcalcifications. Given calcifications in the specimen, partial sampling likely occurred. Residual microcalcifications indicate the intended biopsy site. If high risk or malignant results, the residual microcalcifications can be targeted for excision. Otherwise, if benign results, six-month follow-up mammogram will be recommended. FULL PATHOLOGY RESULTS TO FOLLOW. Pathology Results: Benign RIGHT BREAST, 9:00, STEREOTACTIC CORE BIOPSY: Fibrocystic changes including sclerosing adenosis, cysts, columnar cell change and calcifications. Recommendation 6 months follow up mammogram as there was prominent clip migration and what appears to be partial sampling of the targeted calcifications. PAVEL
== END ==
LOC: RADMAMWWP 09:40
PROVIDERS: ATTEND Surgery
DX: R92.8 Other abnormal and inconclusive findings on diagnostic imaging of breast (principal); N60.11 Diffuse cystic mastopathy of right breast; R92.1 Mammographic calcification found on diagnostic imaging of breast; Z91.040 Latex allergy status
CPT/HCPCS: 88305; 19081; A4648; J2001

== ENCOUNTER → 2022-09-15 | Outpatient (CLI) | payer BC ==
--- NOTE | 2022-09-15 13:53 | MM ---
Reason for Exam: Follow-up at short interval from prior study. Last screening mammogram was performed 9 month(s) ago. Patient History: Menarche at age 12. First Full-Term at age 30. Hormonal Contraceptives, starting at age 28 for 9 years. 01/25/2022, Benign Core Biopsy on the right side. Mother had breast cancer, age 53. Last menstrual period: Risk Values: Jesi 5 year model risk: 2.5%. NCI Lifetime model risk: 21.7%. Prior Study Comparison: 08/25/2006 Bilateral Screening Mammogram, [facility]. 09/06/2006 Bilateral Diagnostic Mammogram, [facility]. 01/08/2009 Bilateral Diagnostic Mammogram, [facility]. 08/15/2014 Bilateral Screening Mammogram, [facility]. 08/22/2014 Right Diagnostic Mammogram, [facility]. 08/29/2018 Bilateral Screening Mammogram, [facility]. 12/10/2021 Bilateral Screening Mammogram, [facility]. 12/23/2021 Right Diagnostic Mammogram, [facility]. 12/23/2021 Right Diagnostic Ultrasound, [facility]. Tissue Density: Right: The breast tissue is heterogeneously dense. This may lower the sensitivity of mammography. Findings: Analyzed By CAD. Biopsy clip within the right breast in the subcutaneous tissues near the skin. Area of prior biopsy demonstrates no suspicious calcifications, masses or distortions. Overall Assessment: Benign, BI-RAD 2 Management: Screening Mammogram of both breasts in 1 year. A clinical breast exam by your physician is recommended on an annual basis and results should be correlated with mammographic findings. This exam should not preclude additional follow-up of suspicious palpable abnormalities. Results were given to the patient verbally at the time of exam. Electronically signed and approved by: Mirza Mars DO
== END | disposition home or self-care (01) ==
LOC: RADMAMWWP 13:04
PROVIDERS: ATTEND Surgery
DX: R92.8 Other abnormal and inconclusive findings on diagnostic imaging of breast (principal); Z80.3 Family history of malignant neoplasm of breast
CPT/HCPCS: 77061; 77065

== ENCOUNTER → 2023-05-16 | Outpatient (CLI) | payer BC ==
--- NOTE | 2023-05-17 09:53 | MM ---
Reason for Exam: Screening (asymptomatic). Last mammogram was performed 1 year(s) and 5 month(s) ago. Patient History: Menarche at age 12. First Full-Term at age 30. Postmenopausal. Hormonal Contraceptives, starting at age 28 for 9 years. 01/25/2022, Benign Core Biopsy on the right side. Mother had breast cancer, age 53. Risk Values: Jesi 5 year model risk: 2.5%. NCI Lifetime model risk: 21.3%. Prior Study Comparison: 12/10/2021 Bilateral Screening Mammogram, [facility]. 12/23/2021 Right Diagnostic Mammogram, [facility]. 09/15/2022 Right MG 3D diag mammo w/cad RT, [facility]. Tissue Density: There are scattered fibroglandular densities. Findings: Analyzed By CAD. Pattern appears symmetrical and stable. No significant interval change is evident. A few scattered benign punctate calcifications are present bilaterally. No suspicious groups of microcalcifications, spiculated or lobular masses, architectural distortion or other secondary signs of malignancy are mammographically apparent. Overall Assessment: Benign, BI-RAD 2 Management: Screening Mammogram of both breasts in 1 year. A negative mammogram report should not preclude additional follow up of suspicious palpable abnormalities. Patient should continue monthly self breast exam. A clinical breast exam by your physician is recommended on an annual basis and results should be correlated with mammographic findings. Electronically signed and approved by: Beni Cleveland D.O. Radiologis
== END | disposition home or self-care (01) ==
LOC: RADMAMWWP 15:03
PROVIDERS: ATTEND Surgery
DX: Z12.31 Encounter for screening mammogram for malignant neoplasm of breast (principal); Z78.0 Asymptomatic menopausal state; Z80.3 Family history of malignant neoplasm of breast
CPT/HCPCS: 77063; 77067

== ENCOUNTER → 2023-08-03 | Outpatient (CLI) | payer BC ==
[2023-08-03 16:23] LABS: Basophils # (A) 0.05 X 10*3/uL (0.00-0.10); Basophils % (A) 0.9 %; Eosinophils # (A) 0.18 X 10*3/uL (0.04-0.35); Eosinophils % (A) 3.3 %; HCT 47.5 % (37.2-46.3); HGB 15.2 d/dL (12.0-15.0); Lymphocytes # (A) 1.19 X 10*3/uL (0.90-5.00); Lymphocytes % (A) 21.6 %; MCH 27.2 pg (27.0-32.0); MCV 85.1 FL (80.0-97.0); Mean Platelet Volume 10.4 FL (9.5-12.2); Monocytes # (A) 0.44 X 10*3/uL (0.20-1.00); NRBC Per 100 WBC 0 X 10*3/uL (0.00-0.01); Neutrophils # (A) 3.64 X 10*3/uL (1.80-7.70); Neutrophils % (A) 65.8 %; Platelet Count 239 X 10*3/uL (140-440); RBC 5.58 X 10*6/uL (4.10-5.20); RDW 13.2 % (11.5-14.5); WBC 5.52 X 10*3/uL (4.50-10.00)
[2023-08-03 16:28] LABS: ALT 19 U/L (8-44); AST 16 U/L (13-35); Albumin 4.3 d/dL (3.8-4.9); Albumin/Globulin Ratio 1.59 Ratio (1.60-3.17); Alkaline Phosphatase 63 U/L (41-126); Blood Urea Nitrogen 14.7 mg/dL (9.0-27.0); Calcium 9.4 mg/dL (8.7-10.3); Carbon Dioxide 22.3 mmol/L (21.6-31.8); Chloride 112 mmol/L (96-109); Chol/HDL Ratio 5.04 Ratio; Globulin 2.7 d/dL (1.6-3.3); Glucose 92 mg/dL (70-110); LDL Cholesterol,Calculated 150.4 mg/dL (0.0-131.0); Potassium 4.2 mmol/L (3.5-5.5); Sodium 149 mmol/L (135-145); Total Bilirubin 0.4 mg/dL (0.3-1.2)
== END | disposition home or self-care (01) ==
LOC: LABWHC1 10:48
PROVIDERS: ATTEND Family Medicine
DX: Z00.00 Encounter for general adult medical examination without abnormal findings (principal); I10 Essential (primary) hypertension; E78.5 Hyperlipidemia, unspecified; R73.03 Prediabetes
CPT/HCPCS: 36415; 80053; 80061; 82306; 82607; 82746; 83036; 84443; 85025

== ENCOUNTER → 2023-09-30 | Outpatient (CLI) | payer BC ==
--- NOTE | 2023-09-30 12:41 | CT ---
EXAMINATION TYPE: CT abdomen w con DATE OF EXAM: 09/30/2023 COMPARISON: 09/05/2018. HISTORY: Liver cysts CT DLP: 871 mGycm Automated exposure control for dose reduction was used. TECHNIQUE: Helical acquisition of images was performed from the lung bases through the top of iliac crest to include entire abdomen. CONTRAST: Performed with Oral Contrast and with IV Contrast, patient injected with 100 mL of Isovue 300. FINDINGS: LUNG BASES: No significant abnormality is appreciated. LIVER/GB: Scattered simple cysts are seen within the liver. The largest of the cyst is within the lef t lobe of liver adjacent to the gallbladder fossa measuring 4.4 cm in diameter which is increased in size since the previous examination where it measured 2.7 cm. No suspicious liver lesions are otherwi se seen PANCREAS: No significant abnormality is seen. SPLEEN: No significant abnormality is seen. ADRENALS: No significant abnormality is seen. KIDNEYS: No significant abnormality is seen. BOWEL: No significant abnormality is seen. LYMPH NODES: No significant abnormality is seen. OSSEOUS STRUCTURES: No significant abnormality is seen. FREE AIR: No free air is visualized. OTHER: IMPRESSION: 1. SCATTERED SIMPLE LIVER CYSTS DESCRIBED ABOVE. NO SUSPICIOUS LIVER LESIONS ARE SEEN AND NO FOLLOW-U P IS RECOMMENDED THIS TIME. 2. NO ACUTE FINDINGS.
== END | disposition home or self-care (01) ==
LOC: RADCTMAIN 09:52
PROVIDERS: ATTEND Family Medicine
DX: K76.89 Other specified diseases of liver (principal); Q85.01 Neurofibromatosis, type 1
CPT/HCPCS: 74160; Q9967

== ENCOUNTER → 2024-08-06 | Outpatient (CLI) | payer BC ==
--- NOTE | 2024-08-07 14:01 | MM ---
Reason for Exam: Screening (asymptomatic). Last mammogram was performed 1 year(s) and 3 month(s) ago. Patient History: Menarche at age 12. First Full-Term at age 30. Postmenopausal. Hormonal Contraceptives, starting at age 28 for 9 years. 01/25/2022, Benign Core Biopsy on the right side. Mother had breast cancer, age 53. Risk Values: Jesi 5 year model risk: 2.6%. NCI Lifetime model risk: 20.9%. Prior Study Comparison: 12/23/2021 Right Diagnostic Mammogram, [facility]. 09/15/2022 Right MG 3D diag mammo w/cad RT, [facility]. 05/16/2023 Bilateral MG 3D screening mammo w/cad, [facility]. Tissue Density: There are scattered areas of fibroglandular density. Findings: Analyzed By CAD. There is no suspicious group of microcalcifications or new suspicious mass in either breast. Overall Assessment: Negative, BI-RAD 1 Management: Screening Mammogram of both breasts in 1 year. . Patient should continue monthly self-breast exams. A clinical breast exam by your physician is recommended on an annual basis. This exam should not preclude additional follow-up of suspicious palpable abnormalities. Note on Jesi scores and lifetime risk: 1. A Jesi score greater than 3% is considered moderate risk. If this is the case, consider specialist referral to assess eligibility for a risk reducing agent. 2. If overall lifetime risk for the development of breast cancer is 20% or higher, the patient may qualify for future screening with alternating mammogram and breast MRI. [facility], , 08/07/2024 1:58 PM. Electronically signed and approved by: Eric Chery M.D. Radiologis
== END | disposition home or self-care (01) ==
LOC: RADMAMWWP 15:48
PROVIDERS: ATTEND Family Medicine
CPT/HCPCS: 77063; 77067

== ENCOUNTER → 2025-01-15 | Outpatient (CLI) | payer BC ==
[2025-01-15 16:19] VITALS: BP 121/79; PULSE 70; RESP 16; TEMP 98.2
--- NOTE | 2025-01-15 18:16 | P.SLEEP ---
History of Present Illness H&P Date: 01/15/25 This is a 54-year-old female patient who was referred to me for sleep apnea evaluation. 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 She is suspected to have obstructive sleep apnea. She has excessive fatigue and tiredness during the day. The patient works from 3 PM till midnight. She gets home following bed and she typically goes to bed between 2 to 3 AM in the morning and she gets out of bed between 10 and 11 AM. She is averaging a good 7 to 8 hours of sleep. At the same time, she has snoring and the patient has been told to stop breathing couple of times at night by family members. She also has a smart watch that showed that her sleeping oxygen saturation levels have been in the mid 80s. Based on that, sleep apnea was suspected and the patient was referred to me for further evaluation. She states that she wakes up tired and she has seldom problems with memory and concentration. She does not take naps during the day. She sleeps on her side and with her stomach. She drinks 3 cans of Mountain Dew to keep herself stimulated during the day. Mostly paralysis. No hallucinations. No cataplexy. No nighttime chest pain short shortness of breath or heartburn. No anxiety. No depression. No palpitations. No panic attacks. Her weight has remained stable over the years. 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 No 70 congestion heart failure, atrial fibrillation or coronary artery disease. No previous history of stroke. Review of Systems Constitutional: Reports daytime sleepiness, Reports fatigue Eyes: denies as per HPI, denies blurred vision, denies bulging eye, denies decreased vision, denies diplopia, denies discharge, denies dry eye, denies irritation, denies itching, denies pain, denies photophobia, denies loss of peripheral vision, denies loss of vision, denies tunnel vision/blind spots Ears: deny: decreased hearing, ear discharge, earache, tinnitus Ears, nose, mouth and throat: Reports as per HPI Breasts: absent: as per HPI, change in shape, gynecomastia, masses, nipple discharge, pain, skin changes, swelling Cardiovascular: Reports as per HPI Respiratory: Reports snoring Gastrointestinal: Reports as per HPI Genitourinary: Reports as per HPI Menstruation: Reports as per HPI Musculoskeletal: Reports as per HPI Musculoskeletal: absent: ankle pain, ankle stiffness, ankle swelling, as per HPI, elbow pain, elbow stiffness, elbow swelling, foot pain, foot stiffness, foot swelling, hand pain, hand stiffness, hand swelling, hip pain, hip stiffness, hip swelling, knee pain, knee stiffness, knee swelling, shoulder pain, shoulder stiffness, shoulder swelling, wrist pain, wrist stiffness, wrist swelling Integumentary: Reports as per HPI (History of neurofibromas surgically resected and caf au lait spots) Neurological: Reports as per HPI Psychiatric: Reports as per HPI, Reports hypersomnia, Reports sleep disturbances Endocrine: Reports as per HPI Hematologic/Lymphatic: Reports as per HPI Allergic/Immunologic: Reports as per HPI Past Medical History Past Medical History: Hypertension Additional Past Medical History / Comment(s): neurofibromatosis, past lt arm fx, hx elevated prolactin level-saw an test engine evaluator for it. 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 3 sx rt leg to remove neurofibromas, benign tumor removed from chest Past Anesthesia/Blood Transfusion Reactions: Motion Sickness Additional Past Anesthesia/Blood Transfusion Reaction / Comment(s): clausterphobia Past Psychological History: No Psychological Hx Reported Additional Psychological History / Comment(s): pt lives with spouse,son. drives.works as an aide at [employer] Smoking Status: Never smoker Past Alcohol Use History: None Reported Past Drug Use History: None Reported - Past Family History Mother Family Medical History: Cancer, Thyroid Disorder Additional Family Medical History / Comment(s): breast cancer Son(s) Additional Family Medical History / Comment(s): brain sx for astrocytoma. and is autistic Father Family Medical History: Cancer, Hypertension, Myocardial Infarction ([place]) Additional Family Medical History / Comment(s): neurofibromatosis Type 1, lung cancer due to neurofibroma, fpheochromocytoma, angina, bronchitis, lung problems, Medications and Allergies Home Medications Medication Instructions Recorded Confirmed Type Losartan [Cozaar] 50 mg PO DAILY 01/15/22 01/15/25 History Allergies Allergy/AdvReac Type Severity Reaction Status Date / Time lisinopril Allergy Unknown Cough Unverified 01/15/25 16:16 latex AdvReac Rash/Hives Verified 01/25/22 09:54 Physical Exam Vitals: Vital Signs Temp Pulse Resp BP Pulse Ox 01/15/25 16:19 98.2 F 70 16 121/79 96 Intake and Output 01/15/25 01/15/25 01/15/25 06:59 14:59 22:59 Other: Weight 73.255 kg The patient appeared well nourished and normally developed. Vital signs as documented. Few neurofibromas throughout the body. Body mass index is 32.6. Head exam is unremarkable. No scleral icterus or corneal arcus noted. Neck is without jugular venous distension, thyromegaly, or carotid bruits. Carotid upstrokes are brisk bilaterally. The patient has a Mallampati class IV with crowding the posterior pharynx. Lungs are clear to auscultation and percussion. Cardiac exam reveals the PMI to be normally sized and situated. Rhythm is regular. First and second heart sounds normal. No murmurs, rubs or gallops. Abdominal exam reveals normal bowel sounds, no masses, no organomegaly and no aortic enlargement. Extremities are nonedematous and both femoral and pedal pulses are normal. Examination of the skin revealed no evidence of significant rashes, suspicious appearing nevi or other concerning lesions. Neurologically, the patient is awake and alert and the patient does not have any focal neurological deficit. Cranial nerves are essentially intact. Assessment and Plan Plan: Chronic hypersomnia, along with symptoms of snoring and apneas. Clinically suspected to have obstructive sleep apnea. The patient is a poor scores at 6. Patient is coming in for further investigation. The Randolph score is currently at 6. Patient has a Mallampati class IV. Body mass index of 32.7 Neurofibroma type I Hypertension Scoliosis of the spine. Plan Encourage weight loss Maintain regular sleep schedule Maintain good sleep hygiene measures Eliminate caffeinated beverages at least 3 hours prior to going to bed Will proceed with a home sleep study to screen this patient for obstructive sleep apnea and will make treatment recommendations accordingly. Time with Patient: Greater than 30 Sleep Note - Sleep Data ESS Total: 6 - Sleep Note Sleep Note: Temperature: 98.2 F Pulse Rate: 70 Respiratory Rate: 16 Blood Pressure: 121/79 SpO2: 96 Height: 4 ft 11 in Weight: 73.255 kg BMI: Neck Circumference: 15
== END ==
LOC: 3 N SLEEP 15:12
PROVIDERS: ATTEND Internal Medicine Critical Care Medicine
DX: G47.10 Hypersomnia, unspecified (principal); I10 Essential (primary) hypertension; M41.9 Scoliosis, unspecified; Q85.01 Neurofibromatosis, type 1; Z68.32 Body mass index [BMI] 32.0-32.9, adult; Z88.8 Allergy status to other drugs, medicaments and biological substances; Z91.040 Latex allergy status
CPT/HCPCS: 99211